=== PATIENT | female | born 1980 | race African-American/Black ===

== ENCOUNTER 2019-04-21 14:54 | Emergency (ER) | payer SELFPAY ==
[~2019-04-21] VITALS: Ht 167.6 cm; Wt 70.0 kg
[2019-04-21 18:36] VITALS: BP 134/84
== END 2019-04-21 19:19 | disposition home or self-care (01) ==
LOC: ER 14:54
DX: S90.861A Insect bite (nonvenomous), right foot, initial encounter (principal); S90.561A Insect bite (nonvenomous), right ankle, initial encounter; F12.10 Cannabis abuse, uncomplicated; Z88.0 Allergy status to penicillin; W57.XXXA Bitten or stung by nonvenomous insect and other nonvenomous arthropods, initial encounter; Y93.89 Activity, other specified; Y92.89 Other specified places as the place of occurrence of the external cause; Y99.8 Other external cause status
CPT/HCPCS: 99283

== ENCOUNTER 2019-12-07 10:27 | Emergency (ER) | payer SELFPAY ==
[~2019-12-07] VITALS: Ht 167.6 cm; Wt 75.0 kg
[2019-12-07 11:00] VITALS: BP 142/74
== END 2019-12-07 12:02 | disposition home or self-care (01) ==
LOC: ER 10:27
DX: J02.9 Acute pharyngitis, unspecified (principal); F12.90 Cannabis use, unspecified, uncomplicated
CPT/HCPCS: 99282

== ENCOUNTER 2020-09-05 17:56 | Emergency (ER) | payer MEDICAID ==
[~2020-09-05] VITALS: Ht 165.1 cm; Wt 76.0 kg
[2020-09-05 18:01] VITALS: BP 113/86
== END 2020-09-05 22:38 | disposition left against medical advice (07) ==
LOC: ER 17:56
DX: Z53.21 Procedure and treatment not carried out due to patient leaving prior to being seen by health care provider (principal); R51.9 Headache, unspecified; R07.9 Chest pain, unspecified
CPT/HCPCS: 93005